=== PATIENT | male | born 1970 | race Caucasian/White ===

== ENCOUNTER 2019-08-12 07:44 | Emergency (ER) | payer SELFPAY ==
[2019-08-12] MEDS ORDERED: CELECOXIB 100 MG CAPSULE PO ONE (09:09)
[2019-08-12] MEDS ORDERED: COLCHICINE 0.6 MG TABLET PO ONE (09:10)
--- NOTE | 2019-08-12 09:16 | ER Document Report ---
HPI - HPI Patient complains to provider of: gout Time Seen by Provider: 08/12/19 08:48 Onset: Other - 3 weeks Quality of pain: Achy Severity: Moderate Pain Level: 3 Context: 49-year-old male with history of gout presents today with complaints of right great toe pain for the past 3 weeks. Reports he has been drinking lang juice for the past 3 weeks and thought it was helping but he ate some deer meat last night and was up since midnight with pain. Denies other symptoms such as fever vomiting diarrhea. Denies trauma. Reports he has a flare every now and then last time he was here was [facility] 3 years ago. He reports when he came last time he had cellulitis in the toe because he waited so long so he came early this time. Associated Symptoms: None Exacerbated by: Denies Relieved by: Denies Similar symptoms previously: No Recently seen / treated by doctor: No - EENT EENT: DENIES: Sore Throat, Ear Pain, Eye problems - NEURO Neurology: DENIES: Headache, Weakness, Vision blurred, Dizzinesss / Vertigo - CARDIOVASCULAR Cardiovascular: DENIES: Chest pain - RESPIRATORY Respiratory: DENIES: Trouble Breathing, Coughing - GASTROINTESTINAL Gastrointestinal: DENIES: Abdominal Pain, Black / Bloody Stools - URINARY Urinary: DENIES: Dysuria, Urgency, Frequency - MUSCULOSKELETAL Musculoskeletal: DENIES: Extremity pain - DERM Skin Color: Normal, [place] Past Medical History - General Information source: Patient - Social History Smoking Status: Unknown if Ever Smoked Cigarette use (# per day): No Frequency of alcohol use: None Drug Abuse: None Occupation: self employed Family History: None Patient has suicidal ideation: No Patient has homicidal ideation: No Renal/ Medical History: Denies: Hx Peritoneal Dialysis Musculoskeletal Medical History: Reports Hx Gout Surgical Hx: Negative - Immunizations Hx Diphtheria, Pertussis, Tetanus Vaccination: Yes Vertical Provider Document - CONSTITUTIONAL Agree With Documented VS: Yes Exam Limitations: No Limitations General Appearance: WD/WN, No Apparent Distress - INFECTION CONTROL TRAVEL OUTSIDE OF THE [place] IN LAST 30 DAYS: No - HEENT HEENT: Atraumatic, Normocephalic - NECK Neck: Supple - RESPIRATORY Respiratory: No Respiratory Distress - CARDIOVASCULAR Cardiovascular: Regular Rate - MUSCULOSKELETAL/EXTREMETIES Musculoskeletal/Extremeties: MAEW, FROM, Tender - Right great toe tender to palpate some erythema lateral DIP. No warmth cap refill less than 3 seconds good pedal pulse. Course - Re-evaluation Re-evalutation: 08/12/19 09:20 49-year-old male with history of gout will be treated for gout with colchicine steroids and Celebrex. Patient seems very knowledgeable about gout and gout diet. He was instructed is important to follow-up with primary care provider to be followed. He was also instructed on the medications and side effects. He verbalized understanding to all instructions. Dictation of this chart was performed using voice recognition software; therefore, there may be some unintended grammatical errors. - Vital Signs Vital signs: Temp Pulse Resp BP Pulse Ox 98.0 F 90 18 154/99 H 98 08/12/19 07:47 08/12/19 07:47 08/12/19 07:47 08/12/19 07:47 08/12/19 07:47 Discharge - Discharge Clinical Impression: Gout attack Qualifiers: Gout site: toe Gout etiology: unspecified cause Laterality: right Qualified Cod e(s): M10.9 - Gout, unspecified Condition: Stable Disposition: HOME, SELF-CARE Instructions: Anti-Inflammatory Medication ([facility]), [facility], Family Physicians / Practices, Gout ([facility]), Gout Diet ([facility]), Steroid Medication Additional Instructions: *You have been evaluated for gout *Follow up with a primary care provider within one week *Follow the gout diet *Take medication as prescribed *Return to ED for worsening condition, changes, needs Monitor your blood pressure. Your blood pressure was elevated today. This may be because you were anxious, in pain or because you need medication. It is important to follow up with your primary care provider for full evaluation. Prescriptions: Celecoxib [Celebrex 100 mg Capsule] 100 mg PO BID #20 capsule Colchicine [Colcrys 0.6 mg Tablet] 1 tab PO BID #60 tab Prednisone [Deltasone 10 mg Tablet] 10 mg PO ASDIR PRN #21 tablet PRN Reason: Forms: Elevated Blood Pressure
[2019-08-12 09:51] VITALS: BP 158/99
== END 2019-08-12 09:53 | disposition home or self-care (01) ==
LOC: ER 07:44
DX: M10.9 Gout, unspecified (principal); M79.675 Pain in left toe(s)
CPT/HCPCS: 99283